=== PATIENT | male | born 1960 | race Caucasian/White ===

== ENCOUNTER → 2020-11-02 | Outpatient (CLI) | payer MEDICARE ==
[~2020-11-02] MED LIST: REGADENOSON INJ 0.4 MG/5 ML DISP.SYRIN IV ONE
--- NOTE | 2020-11-02 14:44 | DRAGON STRESS TEST REPORT ---
Pharmacological nuclear stress test Date: November 02, 2020 Referring physician: Dr. Yamil Sears Performing physician: Kwan Walker MD Indication: Coronary atherosclerosis detected on chest CT as an incidental finding with strong family history of coronary artery disease. Clinical history 60-year-old male with strong family history of coronary artery disease was detected to have coronary atherosclerosis on chest CT performed on 09/16/2020 as an incidental finding. He is not symptomatic from a cardiac standpoint. Other risk factors for cardiac disease include nicotine dependence-cigarettes as well as systemic hypertension. We have decided to proceed with a pharmacological nuclear stress test. Procedure The patient presented to the stress lab. Initially rest images were obtained according to standard protocol after the injection of 50.79 millicurie technetium 99m sestamibi. Subsequently the patient underwent pharmacological stress utilizing 0.4 mg of regadenoson intravenously. The patient's EKG and vital signs were monitored throughout the procedure. Subsequently patient was injected with 46.3 millicuries of technetium 99m sestamibi. After a period of rest, stress images were obtained according to standard protocol. EKG showed sinus rhythm at 75 beats per minute. The patient's stress EKG did not show any evidence for myocardial ischemia. There were no arrhythmias observed. Raw as well as processed rest and stress images were reviewed. There was mild to moderate gut uptake which did not interfere with the study. The rest and stress images show a medium size, moderately to severely intense, partially reversible defect in the entire inferior wall as well as the inferolateral wall. There is mild inferior and inferolateral hypokinesis. The calculated ejection fraction is 56 %. The TID ratio is 1.11. Conclusion The stress EKG is negative for myocardial ischemia Scintigraphic images suggest ischemia in the RCA/left circumflex distribution. There is mild inferior and inferolateral hypokinesis. The gated left ventricular ejection fraction is 56%. The patient will be given an appointment to discuss these results. [facility]
== END ==
LOC: RAD 08:14
PROVIDERS: ATTEND Internal Medicine
DX: I25.10 Atherosclerotic heart disease of native coronary artery without angina pectoris (principal); R06.02 Shortness of breath; I10 Essential (primary) hypertension; D75.1 Secondary polycythemia; F17.218 Nicotine dependence, cigarettes, with other nicotine-induced disorders; Z82.49 Family history of ischemic heart disease and other diseases of the circulatory system
CPT/HCPCS: 93017; 78452; A9500; J2785; Q9969